=== PATIENT | male | born 2000 | race Asian ===

== ENCOUNTER 2023-03-03 20:37 | Emergency (ER) | payer OTHER ==
[~2023-03-03] VITALS: Ht 160 cm; Wt 72.7 kg
[2023-03-03] MEDS ORDERED: LIDOCAINE 1% 10 ML VIAL SQ ONE (21:45)
[2023-03-03] MEDS ORDERED: BACITRACIN 0.9 GM PACKET OINTMENT TP ONE (21:45)
[2023-03-03] MEDS ORDERED: ACETAMINOPHEN 500 MG TABLET PO ONE (21:45)
[2023-03-03 23:13] VITALS: BP 110/68
== END 2023-03-03 23:33 | disposition home or self-care (01) ==
LOC: EMS 20:48 → EDBD 20:48 → EMS 23:33
DX: S61.216A Laceration without foreign body of right little finger without damage to nail, initial encounter (principal); W26.0XXA Contact with knife, initial encounter; Y93.89 Activity, other specified; Y92.89 Other specified places as the place of occurrence of the external cause; Y99.8 Other external cause status
CPT/HCPCS: 99282; 12001; J3490